=== PATIENT | male | born 1985 | race Caucasian/White ===

== ENCOUNTER 2018-09-06 08:56 | Day surgery (SDC) | payer OTHER ==
[~2018-09-06] VITALS: Ht 180.3 cm; Wt 84.1 kg
[2018-09-06] MEDS ORDERED: DULO60 PO (09:46)
[2018-09-06] MEDS ORDERED: Budeprion Xl300 MG PO (09:47)
[2018-09-06] MEDS ORDERED: Fish Oil Conc1000 MG PO (09:49)
--- NOTE | 2018-09-06 10:57 | NUR ---
09/06/18 1057 Vandana Hamlin BANDING KIT USED. 2 BANDS USED. 1 BAND DID NOT DEPLOY.
--- NOTE | 2018-09-06 10:57 | NUR ---
09/06/18 1057 Vandana Hamlin REMAINING LIDOCAINE JELLY SENT HOME WITH PT PER DR DURAN. JELLY APPLIED IN OR POST PROCEDURE. PT INSTRUCTED TO TAKE STOOL SOFTENERS 2X/DAY FOR 1 WEEK.
== END 2018-09-06 10:44 | disposition home or self-care (01) ==
LOC: ORSCSDS 08:56
PROVIDERS: Internal Medicine Gastroenterology
PROC: 06LY4CC Occlusion of Hemorrhoidal Plexus with Extraluminal Device, Percutaneous Endoscopic Approach (ICD-10-PCS; principal; 2018-09-06 10:15)
DX: K62.5 Hemorrhage of anus and rectum (principal); K64.1 Second degree hemorrhoids; F33.42 Major depressive disorder, recurrent, in full remission; Z79.899 Other long term (current) drug therapy
CPT/HCPCS: J2250; J2704; J7120